=== PATIENT | female | born 1975 | race Caucasian/White ===

== ENCOUNTER 2024-10-23 03:32 | Inpatient (IN) | payer BC ==
[~2024-10-23] VITALS: Ht 162.6 cm; Wt 98.9 kg
[2024-10-23] VITALS (10 sets, daily range): BP systolic 94–126; BP diastolic 62–74; PULSE 46–74; RESP 12–18; TEMP 97.8–98.7; O2SAT 97–100
[2024-10-23] MEDS: ONDANSETRON HCL INJ 2MG/ML 2ML 2 MG/ML VIAL IV STA (03:54)
[2024-10-23] MEDS: SODIUM CHLORIDE 0.9% 1000ML 1,000 ML IV STA (03:55)
[2024-10-23 04:13] LABS: BASOPHILS % 0.4 % (0.0-1.0); EOSINOPHILS % 2.6 % (0.0-6.0); LYMPHOCYTES % 13.2 % (18.0-39.1); MONOCYTES % 7.4 % (4.4-11.3); NEUTROPHILS % 76.1 % (38.7-80.0); RED CELL DISTRIBUTION WIDTH 23.4 % (11.7-14.4)
[2024-10-23 04:27] LABS: EST GLOMERULAR FILTRATION RATE 104.0 ML/MIN (>=60)
[2024-10-23] MEDS ORDERED: IOPAMIDOL 370 MG/ML 100 ML INFUS..BTL INJ ONE (05:15)
[2024-10-23] MEDS ORDERED: ONDANSETRON HCL INJ 2MG/ML 2ML 2 MG/ML VIAL IV PRN (06:00)
[2024-10-23] MEDS: SODIUM CHLORIDE 0.9% 1000ML 1,000 ML IV SCH (06:06)
[2024-10-23] MEDS: Morphine 4mg INJECTION 4 MG/ML INJ IV PRN (06:35)
[2024-10-23] MEDS: BISACODYL 10 MG SUPP PR ONE ×2 (09:36→17:04)
[2024-10-23] MEDS ORDERED: DIPHENHYDRAMINE HCL 25 MG CAP PO PRN (15:30)
[2024-10-23] MEDS ORDERED: ACETAMINOPHEN 325 MG TAB PO PRN (15:30)
[2024-10-23] MEDS ORDERED: SIMETHICONE 80 MG CHEW PO PRN (15:30)
[2024-10-23] MEDS ORDERED: BENZONATATE 100 MG CAP PO PRN (15:30)
[2024-10-23] MEDS ORDERED: MELATONIN 5 MG TABLET PO PRN (15:30)
[2024-10-23] MEDS ORDERED: HYDRALAZINE HCL 20 MG/ML VIAL IV PRN (15:30)
[2024-10-23] MEDS ORDERED: DOCUSATE SODIUM 100 MG CAP PO PRN (15:30)
[2024-10-23] MEDS ORDERED: DEXTROSE 50% SYRINGE 50 ML IV PRN (15:30)
[2024-10-23] MEDS ORDERED: ALBUTEROL/IPRATROPIUM 3 ML NEB NEB PRN (15:30)
[2024-10-23] MEDS ORDERED: POTASSIUM CHLORIDE 20 MEQ TAB CR PO PRN (15:30)
[2024-10-23] MEDS ORDERED: LIDOCAINE 4% PATCH TP PRN (15:30)
[2024-10-23] MEDS: ENOXAPARIN SOD INJ 40 MG/0.4 ML SYR SC SCH (17:03)
[2024-10-23] MEDS: DEXTROSE 5%/0.9% SOD CHL 1,000 ML IV SCH (17:03)
[2024-10-23] MEDS ORDERED: FEROSUL325 MG PO (18:24)
[2024-10-24] VITALS (8 sets, daily range): BP systolic 97–126; BP diastolic 65–89; PULSE 54–75; RESP 18–20; TEMP 97.8–98.4; O2SAT 98–100
[2024-10-24 05:02] LABS: LEUKOCYTE ESTERASE ,URINE NEGATIVE (NEGATIVE); PROTEIN,URINE DIPSTICK NEGATIVE (NEGATIVE); URINE UROBILINOGEN 0.2 mg/dL (0.2 - 1)
[2024-10-24 05:03] LABS: AMPHETAMINES SCREEN,URINE NEGATIVE (NEGATIVE); OPIATES SCREEN,URINE POSITIVE (NEGATIVE)
[2024-10-24 05:04] LABS: CANNABINOIDS SCREEN,URINE NEGATIVE (NEGATIVE); COCAINE SCREEN,URINE NEGATIVE (NEGATIVE); METHADONE SCREEN, URINE NEGATIVE (NEGATIVE)
[2024-10-24 05:09] LABS: PREGNANCY TEST, URINE NEGATIVE (NEGATIVE)
[2024-10-24 06:07] LABS: EPITHELIAL CELLS,URINE FEW /LPF; WBC,URINE (MAN) 0-5 /HPF (0-5)
[2024-10-24 06:27] LABS: BASOPHILS % 1.3 % (0.0-1.0); EOSINOPHILS % 5.9 % (0.0-6.0); LYMPHOCYTES % 25.4 % (18.0-39.1); MONOCYTES % 9.1 % (4.4-11.3); NEUTROPHILS % 58.0 % (38.7-80.0); RED CELL DISTRIBUTION WIDTH 23.5 % (11.7-14.4)
[2024-10-24] MEDS ORDERED: SENNA LAX8.6 MG PO (06:27)
[2024-10-24] MEDS ORDERED: POLYETHYLENE GL17 GM PO (06:27)
[2024-10-24] MEDS ORDERED: XYZAL5 MG PO (06:27)
[2024-10-24 06:41] LABS: PHOSPHORUS 2.8 MG/DL (2.3-4.7)
[2024-10-24 06:43] LABS: EST GLOMERULAR FILTRATION RATE 104.0 ML/MIN (>=60)
[2024-10-24] MEDS: PANTOPRAZOLE SOD 40 MG TABEC PO SCH (09:07)
[2024-10-24] MEDS: LACTULOSE SYRUP 20 GM/30 ML UDC PO SCH (12:50)
[2024-10-25] VITALS (7 sets, daily range): BP systolic 110–128; BP diastolic 80–89; PULSE 52–75; RESP 18; TEMP 98.1–98.6; O2SAT 96–100
[2024-10-25 02:19] LABS: % IRON SATURATION 9 % (15-50)
[2024-10-25 06:11] LABS: BASOPHILS % 0.6 % (0.0-1.0); EOSINOPHILS % 5.5 % (0.0-6.0); LYMPHOCYTES % 28.2 % (18.0-39.1); MONOCYTES % 10.3 % (4.4-11.3); NEUTROPHILS % 55.1 % (38.7-80.0); RED CELL DISTRIBUTION WIDTH 23.5 % (11.7-14.4)
[2024-10-25 06:45] LABS: EST GLOMERULAR FILTRATION RATE 96.0 ML/MIN (>=60)
[2024-10-25] MEDS: SODIUM FERRIC GLUCONATE COMPLX 125 MG in SODIUM CHLORIDE 0.9% 100 ML IV SCH (14:46)
[2024-10-25] MEDS: CYANOCOBALAMIN INJ 1,000 MCG/ML VIAL IM SCH (14:47)
[2024-10-26 05:40] LABS: BASOPHILS % 1.0 % (0.0-1.0); EOSINOPHILS % 5.0 % (0.0-6.0); LYMPHOCYTES % 23.8 % (18.0-39.1); MONOCYTES % 8.4 % (4.4-11.3); NEUTROPHILS % 61.5 % (38.7-80.0); RED CELL DISTRIBUTION WIDTH 23.3 % (11.7-14.4)
[2024-10-26 06:33] LABS: EST GLOMERULAR FILTRATION RATE 98.0 ML/MIN (>=60)
[2024-10-26 07:38] VITALS: PULSE 65; RESP 18; O2SAT 98
[2024-10-26 07:54] VITALS: BP 128/84; PULSE 58; RESP 17; TEMP 98; O2SAT 99
[2024-10-26 08:30] VITALS: BP 128/84; PULSE 58; RESP 17; TEMP 98; O2SAT 99
[2024-10-26 11:45] VITALS: BP 134/81; PULSE 51; RESP 18; TEMP 97.9; O2SAT 100
[2024-10-26] MEDS ORDERED: VITAMIN B-121000 MCG PO (15:09)
== END 2024-10-26 16:05 | disposition home or self-care (01) | DRG 389 ==
LOC: ER 03:35 → ERHOLD 05:51 → MED/SURG3 07:54
PROVIDERS: ADMIT Internal Medicine; ATTEND Internal Medicine
DX: K56.7 Ileus, unspecified (principal); K50.90 Crohn's disease, unspecified, without complications; A08.4 Viral intestinal infection, unspecified; D50.9 Iron deficiency anemia, unspecified; E53.8 Deficiency of other specified B group vitamins; K59.00 Constipation, unspecified; K80.20 Calculus of gallbladder without cholecystitis without obstruction; F17.210 Nicotine dependence, cigarettes, uncomplicated
CPT/HCPCS: 36415; 74019; 74177; 80048; 80053; 80307; 81001; 81025; 82607; 82746; 83540; 83690; 83735; 84100; 84466; 84702; 85025; 85045; 94799; 99284; J1650; J2270; J2405; J2470; J2543; J2916; J3420; J7030; J7042; J7050; Q9967